=== PATIENT | female | born 1945 | race Caucasian/White ===

== ENCOUNTER 2022-10-20 20:30 | Inpatient (IN) | payer OTHER ==
[~2022-10-20 20:30] MED LIST: Iopamidol-370 76% 500 ML MDV (1 ML CHARGE) ONE
[2022-10-20] MEDS ORDERED: Morphine 4 MG/ML VIAL ONE ×2 (20:57→23:57)
[2022-10-20 21:47] LABS: #Monocytes 0.7 thou/uL (0.11-0.59); #Neutrophils 8.9 thou/uL (1.40-6.50); %Basophils 0.3 % (0.0-1.0); %Eosinophils 0.4 % (0.0-10.0); %Lymphocytes 5.9 % (21.0-51.0); %Monocytes 6.7 % (0.0-10.0); %Neutrophils 86.2 % (42.0-75.0); Hemoglobin 13.4 g/dL (12.0-16.0); Mean Corpuscular HGB CONC 32.2 g/dL (32.0-36.0); Mean Corpuscular Hemoglobin 31.9 pg (27.0-31.0); Mean Platelet Volume 9.9 fL (7.4-10.4); Platelet Count 225 10x3/uL (130-400); RBC Distribution Width 12.7 % (11.5-14.5); White Blood Cell (WBC) Count 10.3 10x3/uL (4.8-10.8)
[2022-10-20 22:01] LABS: INR-International Normal Ratio 0.9; Prothrombin Time 12.9 sec (12.0-14.7)
[2022-10-20 22:08] LABS: ALT (SGPT) 52 U/L (8-55); AST (SGOT) 101 U/L (5-34); Albumin 3.6 g/dL (3.4-4.8); Alkaline Phosphatase 55 U/L (40-110); Anion Gap 12 mmol/L (10-20); BUN (Urea Nitrogen) 22 mg/dL (9.8-20.1); Bilirubin, Total 0.6 mg/dL (0.2-1.2); Calc. Creatinine Clearance 0 mL/min (70-130); Calcium 8.6 mg/dL (7.8-10.44); Carbon Dioxide 24 mmol/L (23-31); Chloride 108 mmol/L (98-107); Estimated GFR 78; Globulin 2.6 g/dL (2.4-3.5); Glucose 123 mg/dL (83-110); Protein, Total 6.2 g/dL (5.8-8.1); Sodium 140 mmol/L (136-145)
[2022-10-20 22:24] LABS: PTT 22.6 sec (22.9-36.1)
[2022-10-20] MEDS ORDERED: Lorazepam 1 MG TAB ONE ×2 (23:32→23:59)
[2022-10-20] MEDS ORDERED: Allopurinol 300 MG TAB PO SCH (23:45)
[2022-10-20] MEDS ORDERED: Escitalopram Oxalate 10 mg Tablet PO SCH (23:45)
[2022-10-21] MEDS ORDERED: Ondansetron PF 4 MG/2 ML Vial ONE (00:01)
[2022-10-21] MEDS ORDERED: Dextrose 5% in Water 1,000 ML IV PRN (02:27)
[2022-10-21] MEDS ORDERED: Dextrose 50% Abboject 50 ML SYRINGE SLOW IVP PRN (02:27)
[2022-10-21] MEDS ORDERED: Ondansetron PF 4 MG/2 ML Vial IVP PRN (02:27)
[2022-10-21] MEDS ORDERED: Ipratropium/Albuterol 3 ML NEB NEB PRN (02:27)
[2022-10-21] MEDS ORDERED: Morphine 2 MG/ML VIAL SLOW IVP PRN ×2 (02:27→02:46)
[2022-10-21] MEDS ORDERED: traMADol HCl 50 MG TAB PO PRN (02:30)
[2022-10-21] MEDS ORDERED: Cyclobenzaprine 10 MG TAB PO PRN (02:31)
[2022-10-21] MEDS ORDERED: Ketorolac Tromethamine 30 MG/ML VIAL IVP SCH (02:45)
[2022-10-21] MEDS: Sodium Chloride 0.9% 1,000 ML IV SCH ×2 (02:50→10:06)
[2022-10-21] MEDS ORDERED: Ketorolac Tromethamine 30 MG/ML VIAL ONE ×3 (02:54→12:56)
[2022-10-21] MEDS ORDERED: Acetaminophen 500 MG TAB ONE ×2 (06:09→12:57)
[2022-10-21] MEDS ORDERED: traMADol HCl 50 MG TAB ONE ×2 (06:09→12:56)
[2022-10-21 06:13] LABS: #Eosinphils 0.1 thou/uL (0.0-0.7); #Monocytes 0.3 thou/uL (0.11-0.59); #Neutrophils 1.9 thou/uL (1.40-6.50); %Basophils 0.7 % (0.0-1.0); %Eosinophils 2.1 % (0.0-10.0); %Lymphocytes 21.6 % (21.0-51.0); %Monocytes 9.9 % (0.0-10.0); %Neutrophils 65.4 % (42.0-75.0); Hemoglobin 12.5 g/dL (12.0-16.0); Mean Corpuscular HGB CONC 31.6 g/dL (32.0-36.0); Mean Corpuscular Hemoglobin 31.7 pg (27.0-31.0); Mean Corpuscular Volume 100.5 fl (78.0-98.0); Mean Platelet Volume 10.1 fL (7.4-10.4); Platelet Count 197 10x3/uL (130-400); RBC Distribution Width 12.7 % (11.5-14.5); Red Blood Cell (RBC) Count 3.94 mill/uL (4.20-5.40); White Blood Cell (WBC) Count 2.9 10x3/uL (4.8-10.8)
[2022-10-21] MEDS: Ketorolac Tromethamine 30 MG/ML VIAL IVP SCH ×3 (06:22→18:02)
[2022-10-21] MEDS: Acetaminophen 500 MG TAB PO SCH ×3 (06:22→18:03)
[2022-10-21] MEDS: traMADol HCl 50 MG TAB PO SCH ×3 (06:23→18:03)
[2022-10-21 06:30] LABS: INR-International Normal Ratio 0.9; PTT 23.3 sec (22.9-36.1)
[2022-10-21 06:41] LABS: Anion Gap 8 mmol/L (10-20); BUN (Urea Nitrogen) 16 mg/dL (9.8-20.1); Calc. Creatinine Clearance 0 mL/min (70-130); Calcium 8.5 mg/dL (7.8-10.44); Carbon Dioxide 27 mmol/L (23-31); Chloride 107 mmol/L (98-107); Estimated GFR 89; Glucose 117 mg/dL (83-110); Potassium 4.3 mmol/L (3.5-5.1); Sodium 138 mmol/L (136-145)
[2022-10-21] MEDS ORDERED: Famotidine/PF 20 mg/2ml Vial ONE (09:54)
[2022-10-21] MEDS: Gabapentin 100 MG CAP PO SCH ×3 (10:05→20:46)
[2022-10-21] MEDS: Famotidine/PF 20 mg/2ml Vial SLOW IVP SCH ×2 (10:05→20:47)
[2022-10-21 14:43] VITALS: BMI 31.1
[2022-10-21] MEDS ORDERED: Scopolamine 1.5 mg/72 hour Patch TD SCH (19:15)
[2022-10-21] MEDS ORDERED: Allopurinol 300 MG TAB PO SCH (21:00)
[2022-10-22] MEDS: traMADol HCl 50 MG TAB PO SCH ×2 (00:05→05:46)
[2022-10-22] MEDS: Acetaminophen 500 MG TAB PO SCH ×3 (00:06→11:33)
[2022-10-22] MEDS: Ketorolac Tromethamine 30 MG/ML VIAL IVP SCH ×3 (00:07→11:33)
[2022-10-22 05:26] LABS: #Eosinphils 0.2 thou/uL (0.0-0.7); #Monocytes 0.5 thou/uL (0.11-0.59); #Neutrophils 5.1 thou/uL (1.40-6.50); %Basophils 0.4 % (0.0-1.0); %Eosinophils 3.6 % (0.0-10.0); %Neutrophils 76.7 % (42.0-75.0); Hemoglobin 12.1 g/dL (12.0-16.0); Mean Corpuscular HGB CONC 31.1 g/dL (32.0-36.0); Mean Corpuscular Hemoglobin 31.4 pg (27.0-31.0); Mean Platelet Volume 10.2 fL (7.4-10.4); Platelet Count 187 10x3/uL (130-400); RBC Distribution Width 12.7 % (11.5-14.5); Red Blood Cell (RBC) Count 3.85 mill/uL (4.20-5.40); White Blood Cell (WBC) Count 6.7 10x3/uL (4.8-10.8)
[2022-10-22 05:48] LABS: Anion Gap 11 mmol/L (10-20); BUN (Urea Nitrogen) 15 mg/dL (9.8-20.1); Calc. Creatinine Clearance 87 mL/min (70-130); Calcium 8.4 mg/dL (7.8-10.44); Carbon Dioxide 24 mmol/L (23-31); Chloride 107 mmol/L (98-107); Estimated GFR 90; Glucose 94 mg/dL (83-110); Magnesium 2.1 mg/dL (1.6-2.6); Phosphorus 3.3 mg/dL (2.3-4.7); Potassium 4.5 mmol/L (3.5-5.1); Sodium 137 mmol/L (136-145)
[2022-10-22 08:07] VITALS: BP 119/74; TEMP 97.9
[2022-10-22] MEDS: Famotidine/PF 20 mg/2ml Vial SLOW IVP SCH (08:28)
[2022-10-22] MEDS: Gabapentin 100 MG CAP PO SCH (08:28)
[2022-10-22] MEDS ORDERED: Fluticasone Propionate Nasal Spray 16 gm Bottle NASAL SCH (09:00)
[2022-10-22] MEDS ORDERED: Loratadine 10 MG TAB PO SCH (09:00)
[2022-10-22] MEDS ORDERED: Escitalopram Oxalate 10 mg Tablet PO SCH (09:00)
[2022-10-22] MEDS ORDERED: traMADol HCl 50 MG TAB PO SCH (14:00)
== END 2022-10-22 11:30 | disposition home or self-care (01) | DRG 200 ==
LOC: ERS 20:30 → ERHOLD 10-21 02:31 → SURG B 10-21 02:40
PROVIDERS: ADMIT Surgery; ATTEND Surgery
DX: S27.0XXA Traumatic pneumothorax, initial encounter (principal); S22.41XA Multiple fractures of ribs, right side, initial encounter for closed fracture; S27.321A Contusion of lung, unilateral, initial encounter; W17.89XA Other fall from one level to another, initial encounter; E03.9 Hypothyroidism, unspecified; M10.9 Gout, unspecified; I10 Essential (primary) hypertension; E78.5 Hyperlipidemia, unspecified; F41.9 Anxiety disorder, unspecified; Z95.5 Presence of coronary angioplasty implant and graft; Z79.899 Other long term (current) drug therapy; Z79.890 Hormone replacement therapy; Z79.82 Long term (current) use of aspirin
CPT/HCPCS: 36415; 71045; 71260; 74177; 80048; 80053; 83735; 84100; 85025; 85610; 85730; 93005; 96374; 96375; 96376; G0390; J1885; J2270; J2405; J7050; Q9967; S0028